=== PATIENT | female | born 1960 | race Hispanic/Latino ===

== ENCOUNTER 2019-01-10 17:48 | Emergency (ER) | payer OTHER ==
[2019-01-10] MEDS ORDERED: TETANUS/DIPHTHERIA TOXOID [ADULT] 0.5 ML VIAL IM ONE (18:07)
[2019-01-10] MEDS ORDERED: IBUPROFEN 600 MG TABLET ONE (18:20)
== END 2019-01-10 18:49 | disposition home or self-care (01) ==
LOC: EDH 17:48
DX: S91.332A Puncture wound without foreign body, left foot, initial encounter (principal); Z72.0 Tobacco use; W26.8XXA Contact with other sharp object(s), not elsewhere classified, initial encounter; Y93.89 Activity, other specified; Y92.89 Other specified places as the place of occurrence of the external cause; Y99.8 Other external cause status
CPT/HCPCS: 73630; 90471; 90714

== ENCOUNTER 2022-05-04 08:28 | Emergency (ER) | payer OTHER ==
[~2022-05-04] VITALS: Ht 154.9 cm; Wt 100.7 kg
[2022-05-04 08:58] LABS: BASOPHILS % (AUTO) 0.7 % (0.0-5.0); EOSINOPHILS % (AUTO) 6.3 % (0.0-8.0); HEMATOCRIT 40.8 % (36-48); LYMPHOCYTES % (AUTO) 29.8 % (21.0-51.0); MEAN CORPUSCULAR HEMOGLOBIN 30.9 pg (27.0-33.0); MEAN CORPUSCULAR HGB CONC 34.8 g/dL (32.0-36.0); MEAN CORPUSCULAR VOLUME 88.7 fL (79-99); MONOCYTES % (AUTO) 6.5 % (3.0-13.0); NEUTROPHILS % (AUTO) 55.6 % (40.0-77.0); PLATELET COUNT (AUTO) 247 K/uL (130-400); RED CELL DISTRIBUTION WIDTH 12.6 % (11.0-15.5); WHITE BLOOD COUNT (AUTO) 5.5 K/uL (4.8-10.8)
[2022-05-04 09:13] LABS: ALBUMIN 3.4 g/dL (3.5-5.0); CREATININE 0.6 mg/dL (0.5-1.5); POTASSIUM 4.2 mmol/L (3.5-5.1); TOTAL PROTEIN, SERUM 7.4 g/dL (6.0-8.3)
[2022-05-04 09:17] LABS: B-TYPE NATRIURETIC PEPTIDE 58 pg/mL (0-100)
[2022-05-04] MEDS ORDERED: SOLU-MEDROL 125MG VIAL IVP STA (09:33)
[2022-05-04] MEDS ORDERED: IPRATROPIUM/ALBUTEROL SULFATE 3 ML SOLUTION IH STA (09:33)
[2022-05-04 10:00] VITALS: BP 127/76
[2022-05-04] MEDS ORDERED: ALBU8.5H8 IH (10:00)
[2022-05-04] MEDS ORDERED: OSEL75 PO (10:00)
== END 2022-05-04 10:10 | disposition home or self-care (01) ==
LOC: EDH 08:28
DX: J10.1 Influenza due to other identified influenza virus with other respiratory manifestations (principal); J45.909 Unspecified asthma, uncomplicated; Z20.822 Contact with and (suspected) exposure to COVID-19
CPT/HCPCS: 99285; 96374; 71045; 87635; 84484; 80053; 83880; 85025; 87804 ×2; 36415; 93005; 94640; C9803; J2930

== ENCOUNTER 2024-08-09 13:19 | Emergency (ER) | payer SELFPAY ==
[~2024-08-09] VITALS: Ht 157.5 cm; Wt 99.8 kg
[~2024-08-09 13:19] MED LIST: ALBU8.5H8 IH; OSEL75 PO
[2024-08-09 13:24] VITALS: BP 166/79; PULSE 91; RESP 18; TEMP 98.1; O2SAT 94
[2024-08-09] MEDS ORDERED: AMOX1TAB16 PO (13:49)
--- NOTE | 2024-08-09 13:50 | ERN ---
ED Note History of Present Illness Stated Complaint: EYE Chief Complaint: Eye Problems Time Seen by MD: 13:21 Dictation: PATIENT IS A 64-YEAR-OLD FEMALE COMING IN TODAY WITH SWELLING AND ERYTHEMA TO THE LEFT TEAR DUCT SHE HAS HAD FOR 3-4 DAYS. SHE DENIES ANY VISION CHANGES, DOES NOT USE CORRECTIVE LENSES OR CONTACTS. SHE STATES SHE DOES NOT HAVE A PRIMARY CARE DOCTOR. Allergies: Coded Allergies: No Known Allergies (Unverified Allergy, Unknown, 01/10/19) No Known Drug Allergies (Unverified Allergy, Unknown, 01/10/19) Home Meds Active Scripts Albuterol Sulfate (Proair Hfa) 8.5 Gm Hfa.aer.ad, 8.5 GM IH BID for 7 Days, #30 INHALER Prov:BOB WEBB MD 05/04/22 Oseltamivir Phosphate (Tamiflu) 75 Mg Cap, 75 MG PO BID for 5 Days, #10 CAP Prov:BOB WEBB MD 05/04/22 Past Medical History Past Medical History: No Pertinent History Additional Past Medical Hx: DENIES PMHX Surgical History: None Surgical History Other: DENIES PSHX History: Not Applicable RN Note Reviewed/Agreed w/PFSH: Yes Review of System Dictation CONSTITUTIONAL: NEGATIVE EXCEPT FOR HPI HEAD/FACE: NEGATIVE EXCEPT FOR HPI EENT: NEGATIVE EXCEPT FOR HPI LEFT EYE TEAR DUCT ERYTHEMA SWELLING MILD RESPIRATORY: NEGATIVE EXCEPT FOR HPI GASTROINTESTINAL/ABDOMINAL: NEGATIVE EXCEPT FOR HPI GENITOURINARY: NEGATIVE EXCEPT FOR HPI MUSCULOSKELETAL: NEGATIVE EXCEPT FOR HPI INTEGUMENTARY: NEGATIVE EXCEPT FOR HPI NEUROLOGICAL/PSYCH: NEGATIVE EXCEPT FOR HPI HEMATOLOGIC/LYMPHATIC: NEGATIVE EXCEPT FOR HPI ALL SYSTEMS NEGATIVE, EXCEPT NOTED ABOVE. 13 POINT REVIEW OF SYSTEMS ASSESSED AND ALL NEGATIVE EXCEPT FOR ABOVE. Initial Vital Sign VS Vital Signs Date Time Temp Pulse Resp B/P (MAP) Pulse Ox O2 Delivery O2 Flow Rate FiO2 08/09/24 13:20 98.1 91 18 166/79 94 Room Air 0 08/09/24 13:24 21 Physical Exam Dictation VITAL SIGNS REVIEWED GENERAL APPEARANCE: ALERT, ORIENTED X 3, NO ACUTE DISTRESS, WELL DEVELOPED, NOURISHED. HEAD AND FACE: NON-TRAUMATIC. EYES: PERRL, PINK CONJUNCTIVAS, EYELID NO TRAUMA, ANTERIOR CHAMBER WITH ARCUS SENILIS. MILD LEFT TEAR DUCT ERYTHEMA SWELLING WITH A ERYTHEMA. EOMS INTACT EARS: PINNAS INTACT AND NO SIGNS OF TRAUMA OR ERYTHEMA EAR CANALS CLEAR AND NO DISCHARGE TM NO ERYTHEMA NOSE: NO DISCHARGE, NO BLEEDING. OROPHARYNX: MOUTH NORMAL, TONGUE PINK, PHARYNX CLEAR,NO ERYTHEMA, TONSILS NO EXUDATES, NO ABSCESSES NOTED, MUCOUS MEMBRANE MOIST NECK: SUPPLE, NON-TENDER, NO THYROMEGALY, NO MASSES, NO JVD, NO BRUITS BREAST:DEFERRED CHEST:NO TENDERNESS, NO CREPITUS, NO PARADOXICAL MOVEMENT, NO RETRACTIONS LUNGS:CLEAR, WELL-VENTILATED, SYMMETRIC, NO RALES, NO WHEEZING, NO RHONCHI, NO STRIDOR, GOOD BREATH SOUNDS BILATERALLY HEART: REGULAR RATE, REGULAR RHYTHM, NO MURMUR, NO GALLOPS VASCULAR: NO PERIPHERAL EDEMA, ABDOMEN: SOFT, POSITIVE BOWEL SOUNDS, NONDISTENDED, NO GUARDING, NONTENDER, NO REBOUND, NO MASSES NO HEPATOMEGALY, NO SPLENOMEGALY, NO ALVAREZ'S SIGN, NO HERNIAS. RECTAL: DEFERRED GENITAL: DEFERRED NEUROLOGICAL: NORMAL SPEECH, MOTOR FUNCTION INTACT, SENSORY FUNCTION INTACT MUSCULOSKELETAL: NECK NONTENDER, FULL RANGE OF MOTION, BACK NONTENDER, FULL RANGE OF MOTION, EXTREMITIES: NONTENDER, FULL RANGE OF MOTION SKIN: COLOR PINK, DRY, NO TURGOR, NO RASH, NO LACERATIONS, NO ABRASIONS, NO CONTUSIONS. LYMPHATIC: DEFERRED Results (Laboratory/Radiology) Labs Reviewed?: Yes ED Course ED Course Vital Signs Date Time Temp Pulse Resp B/P (MAP) Pulse Ox O2 Delivery O2 Flow Rate FiO2 08/09/24 13:24 98.1 91 18 166/79 94 Room Air* 0 21 08/09/24 13:20 98.1 91 18 166/79 94 Room Air 0 1345/PATIENT WILL BE TREATED EMPIRICALLY FOR DACRYOCYSTITIS SHE WILL BE GIVEN AUGMENTIN 875, SHE WILL BE REFERRED TO [facility] FOR FOLLOW UP AND MANAGEMENT Medical Decision Making MDM MEDICAL DISCHARGE MAKING BASED ON EMPIRIC TREATMENT FOR DACRYOCYSTITIS NO ACUTE VISION CHANGES EOMS ARE INTACT PATIENT WILL BE DISCHARGED HOME WITH A [id number] B.I.D. FOR 10 DAYS WARM COMPRESSES THIGH THREE TO 4 TIMES A DAY FOLLOW UP WITH [facility] OPHTH[facility] IN THE NEXT 2-3 DAYS DX & DISP Disposition: Discharge Departure Impression: Primary Impression: Dacryocystitis of left lacrimal sac Condition: Stable Scripts Amoxicillin/Potassium Clav (Amox Tr-K Clv 875-125 mg Tab) 875 Mg-125 Mg Tablet 1 EACH PO BID for 10 Days, #20 TAB 0 Refills Prov: WOODROW ALMAGUER [employer]ICER 08/09/24 Additional Instructions: FOLLOW-UP WITH PRIMARY CARE PROVIDER IN 1 TO 2 DAYS. TAKE MEDICATIONS DIRECTED HERE IN THE EMERGENCY ROOM. OKAY TO CONTINUE HOME MEDICATIONS UNLESS OTHERWISE DISCUSSED DURING YOUR VISIT IN THE EMERGENCY ROOM TODAY. RETURN TO YOUR NEAREST EMERGENCY ROOM IF SYMPTOMS WORSEN OR IF THERE IS NO IMPROVEMENT. CALL 911 IF YOU NEED IMMEDIATE ASSISTANCE. TAKE TYLENOL OR MOTRIN [id number] NEEDED AND IF NO CONTRAINDICATIONS ARE PRESENT. INCREASE ORAL HYDRATION. A WOUND CULTURE OR URINE CULTURE WAS ORDERED HERE IN THE EMERGENCY ROOM DEPARTMENT PLEASE FOLLOW-UP WITH PRIMARY CARE PROVIDER AND ADVISE THEM TO GET REPEAT PORTS FROM OUR FACILITY. IF YOU HAD ANY TATO WRAP/SPLINTS THAT WERE APPLIED HERE, PLEASE DO NOT REMOVE THEM UNTIL YOU SEE YOUR PRIMARY CARE OR SPECIALTY. WARM COMPRESSES TO LEFT EYE TEAR DUCT THREE TO 4 TIMES A DAY. TAKE ANTIBIOTICS DIRECTED UNTIL GONE. CALL [facility]PHTHAL[facility], LOOKING THE YELLOW PAGES FOR A PHONE NUMBER AND FOLLOW UP. Referrals: NONE (PCP) Time of Disposition: 13:48 I have reviewed the case, and I agree with, Diagnosis and Plan WOODROW ALMAGUER NP Aug 09, 2024 13:50
[2024-08-09] MEDS ORDERED: AMOX/CLAV 875/125MG TAB PO ONE (14:00)
--- NOTE | 2024-08-09 15:04 | NUR ---
PATIENT CALLED MULTIPLE TIMES AND NOT FOUND. PATIENT SEARCHED FOR IN LOBBY, RESTROOMS, AND PARKING LOT.
== END 2024-08-09 15:05 | disposition left against medical advice (07) ==
LOC: EDH 13:19
DX: H04.302 Unspecified dacryocystitis of left lacrimal passage (principal); Z79.899 Other long term (current) drug therapy
CPT/HCPCS: 99283